=== PATIENT | male | born 1985 | race Caucasian/White ===

== ENCOUNTER 2023-11-10 15:27 | Outpatient (CLI) | payer OTHER, SELFPAY ==
--- NOTE | 2023-11-10 10:30 | DI.RAD_ITS ---
Exam(s) XR KNEE RT 3V AP,LAT,BRENDA EXAM: XR KNEE RT 3V AP,LAT,BRENDA CLINICAL HISTORY: RIGHT KNEE PAIN. TECHNIQUE: 2D digital imaging was performed of the right knee. Three views obtained. Merchant, AP an d lateral views were obtained. COMPARISON: No exams were available for comparison FINDINGS: BONES: No acute fracture is present. No bony destructive lesion is seen. There are 2 sclerotic areas in the distal metaphysis of the femur. Differential considerations include benign lesion such as fib jayjay cortical defects or bone islands. Neoplastic process can not be entirely excluded. JOINTS: There is moderate narrowing of the patellofemoral joint and mild narrowing of the medial femo ral tibial joint. Osteophytes are seen involving all 3 joint compartments. No significant joint eff usion is seen. No loose bodies are seen. SOFT TISSUE: Normal. IMPRESSION: 1. Moderate arthrosis of the knee. 2. Sclerotic areas in the distal femur as described above. Bone scan and/or MRI should be considered for further evaluation. DATA REPOSITORY: RADIATION DOSE DELIVERED:
== END 2023-11-10 15:28 | disposition home or self-care (01) ==
LOC: DIORS 15:27
PROVIDERS: Visit Provider Student in an Organized Health Care Education/Training Program
DX: M17.11 Unilateral primary osteoarthritis, right knee (principal)
CPT/HCPCS: 73562